=== PATIENT | female | born 1935 | race African-American/Black ===

== ENCOUNTER → 2017-07-27 | Outpatient (CLI) | payer MEDICARE, MEDICAID ==
[~2017-07-27] MED LIST: IOHEXOL 300 MG/ML 100ML VIAL. IV
[2017-07-27 09:16] LABS: CREATININE 1.1 mg/dL (0.6-1.0); GFR 57.8
[2017-07-27 09:16] LABS: BLOOD UREA NITROGEN 21 mg/dL (7-20)
== END | disposition home or self-care (01) ==
LOC: CT 08:39
DX: I51.7 Cardiomegaly (principal); N28.1 Cyst of kidney, acquired; K44.9 Diaphragmatic hernia without obstruction or gangrene; I10 Essential (primary) hypertension; E11.9 Type 2 diabetes mellitus without complications; R91.8 Other nonspecific abnormal finding of lung field
CPT/HCPCS: 36415; 71275; 82565; 84520